=== PATIENT | female | born 1975 | race Caucasian/White ===

== ENCOUNTER 2017-05-25 14:56 | Emergency (ER) | payer BC ==
--- NOTE | 2017-05-25 15:30 | EDM.PDOC ---
ED HPI GENERAL MEDICAL PROBLEM - General Chief Complaint: Respiratory Problem Stated Complaint: HAS A COLD/FLU Time Seen by Provider: 05/25/17 15:25 Source of Information: Reports: Patient History Limitations: Reports: No Limitations - History of Present Illness INITIAL COMMENTS - FREE TEXT/NARRATIVE: HISTORY AND PHYSICAL: []41-year-old female presenting with cough congestion History of Present Illness: [] She has been sick for the last week. Productive cough Nasal congestion Denies hypertension and diabetes any underlying medical conditions Review of Systems: As per history of present illness and below otherwise all systems reviewed and negative. Past medical history: As per history of present illness and as reviewed below otherwise noncontributory. Surgical history: As per history of present illness and as reviewed below otherwise noncontributory. Social history: No reported history of drug or alcohol abuse. Family history: As per history of present illness and as reviewed below otherwise noncontributory. Physical exam: Alert and oriented female answering questions appropriately follows directions well HEENT: Atraumatic, normocehpalic, pupils reactive, negative for conjunctival pallor or scleral icterus, mucous membranes moist, throat clear, neck supple, nontender, trachea midline. Lungs: Anterior crackles with cough, breath sounds equal bilaterally, chest non tender. Heart: S1S2, regular, negative for clicks, rubs, or JVD. Extremities: Atraumatic, negative for cords or calf pain. Neurovascular unremarkable. Neuro: Awake, alert, oriented. Cranial nerves II through XII unremarkable. Cerebellum unremarkable. Motor and sensory unremarkable throughout. Exam nonfocal. Diagnostics: [] Therapeutics: [] Impression: [Acute bronchitis] Plan: [Home and rest Increase fluids use [id number] sinus medicine Medrol dose pack Azithromycin Follow-up with primary care provider] Definitive disposition and diagnosis as appropriate pending reevaluation and review of above. 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 ED EXAM, GENERAL - Physical Exam Exam: See Below (See dictation) Course - Vital Signs Last Recorded V/S: Last Vital Signs Temp 36.2 C 05/25/17 15:16 Pulse 67 05/25/17 15:16 Resp 18 05/25/17 15:16 BP 122/74 05/25/17 15:16 Pulse Ox 97 05/25/17 15:16 Departure - Departure Time of Disposition: 15:27 Disposition: Home, Self-Care 01 Condition: Good Clinical Impression: Bronchitis, Wheezing on expiration - Discharge Information Prescriptions: Azithromycin [IJD: Azithromycin] 250 mg PO DAILY #6 tab Benzonatate [Tessalon Perles] 100 mg PO ONETIME #40 cap methylPREDNISolone [Medrol] 4 mg PO ASDIRECTED #1 dosepk Forms: ED Department Discharge
== END 2017-05-25 15:47 | disposition home or self-care (01) ==
LOC: MW.ED 14:56
CPT/HCPCS: 99282; 99283

== ENCOUNTER 2024-01-29 02:19 | Emergency (ER) | payer SELFPAY ==
[2024-01-29] MEDS ORDERED: Dexamethasone 10 MG/ML SDV ONE (02:42)
[2024-01-29 08:08] VITALS: PULSE 95
[2024-01-29 08:11] VITALS: BP 143/88
== END 2024-01-29 02:45 | disposition home or self-care (01) ==
LOC: MW.ED 02:19
DX: J02.0 Streptococcal pharyngitis (principal); E11.9 Type 2 diabetes mellitus without complications; Z79.84 Long term (current) use of oral hypoglycemic drugs
CPT/HCPCS: 99282; J1100; 99283

== ENCOUNTER 2024-09-06 17:40 | Emergency (ER) | payer SELFPAY ==
[2024-09-06 17:55] VITALS: BP 147/74; PULSE 80
== END 2024-09-06 18:10 | disposition home or self-care (01) ==
LOC: MW.ED 17:40
DX: J20.9 Acute bronchitis, unspecified (principal); E11.9 Type 2 diabetes mellitus without complications; E66.9 Obesity, unspecified; Z86.16 Personal history of COVID-19; Z79.84 Long term (current) use of oral hypoglycemic drugs; Z79.899 Other long term (current) drug therapy; Z75.8 Other problems related to medical facilities and other health care; Z68.39 Body mass index [BMI] 39.0-39.9, adult
CPT/HCPCS: 99284

== ENCOUNTER 2025-04-28 22:37 | Emergency (ER) | payer SELFPAY ==
[2025-04-28 22:53] VITALS: BP 132/82; PULSE 86
== END 2025-04-28 23:13 | disposition home or self-care (01) ==
LOC: MW.ED 22:37
DX: J40 Bronchitis, not specified as acute or chronic (principal); E11.9 Type 2 diabetes mellitus without complications; E66.9 Obesity, unspecified; Z68.41 Body mass index [BMI] 40.0-44.9, adult
CPT/HCPCS: 99283